=== PATIENT | female | born 1980 | race Caucasian/White ===

== ENCOUNTER 2018-12-01 13:28 | Day surgery (SDC) | payer OTHER ==
[~2018-12-01] VITALS: Ht 162.6 cm; Wt 70.0 kg
[~2018-12-01 13:28] MED LIST: OMEP40CA6 PO; SUCR1TAB56 PO
[2018-12-01 14:43] VITALS: Ht 162.6 cm; Wt 70.0 kg
[2018-12-01 15:43] VITALS: BP 100/68; PULSE 56; RESP 18
--- NOTE | 2018-12-01 16:37 | PREAC ---
Date/Time of Note Date/Time of Note DATE: 12/01/18 TIME: 16:36 Anesthesia Eval and Record Evaluation Time Pre-Procedure Interview DATE: 12/01/18 TIME: 16:36 Age 38 Sex female NPO: 8 hrs Preoperative diagnosis GERD Planned procedure EGD Past Medical History Past Medical History: None Surgery & Anesthesia Issues No known issue Meds Anticoagulation: No Beta Kaushal within 24 hr: No Reason Beta Kaushal not given: Pt. not on B-Kaushal Reported Medications Sucralfate* (Carafate*) 1 Gm Tab, 1 GM PO AC MEALS AND BEDTIME, TAB 12/01/18 Omeprazole* (Omeprazole*) 40 Mg Capsule.dr, 40 MG PO DAILY, #30 CAP 12/01/18 Meds reviewed: Yes Allergies Coded Allergies: No Known Drug Allergies (Verified Allergy, Unknown, 12/01/18) Allergies Reviewed: Yes Labs/Studies Labs Reviewed: Reviewed by anesthesiologist test: Negative Pre-procedure Exam Last vitals Vital Signs Date Temp Pulse Resp B/P (MAP) Pulse Ox O2 O2 Flow FiO2 Time Delivery Rate 12/01/18 97.5 56 18 100/68 98 Room Air 15:43 (79) Airway: Adequate mouth opening, Adequate thyromental dist Mallampati: Mallampati I Teeth: Normal Lung: Normal Heart: Normal ASA Physical Status ASA physical status: 2 Emergency: None Planned Anesthetic General/MAC: MAC Planned Pain Management Parenteral pain med Pre-operative Attestations Prior to commencing anesthesia and surgery, the patient was re-evaluated, there was verification of: *The patient's identity *The results of appropriate recent lab work and preoperative vital signs *The above evaluation not changing prior to induction *Anesthetic plan, risk benefits, alternative and complications discussed with patient/family; questions answered; patient/family understands, accepts and wishes to proceed. MARÍA PHELAN Dec 01, 2018 16:37
[2018-12-01] MEDS ORDERED: LIDOCAINE 2% (SDV) 5 ML INJ ONE (17:01)
[2018-12-01] MEDS ORDERED: PROPOFOL 20 ML ONE (17:01)
[2018-12-01] MEDS ORDERED: ONDANSETRON 4 MG INJ IV PRN (17:30)
[2018-12-01] MEDS ORDERED: FENTAnyl 50 MCG/ML VIAL IV PRN (17:30)
[2018-12-01] MEDS ORDERED: EPHEDrine 25 MG/5 ML SYG IV PRN (17:30)
--- NOTE | 2018-12-01 17:31 | PAC ---
Date/Time of Note Date/Time of Note DATE: 12/01/18 TIME: 17:31 Post-Anesthesia Notes Post-Anesthesia Note Last documented vital signs Vital Signs Date Temp Pulse Resp B/P (MAP) Pulse Ox O2 O2 Flow FiO2 Time Delivery Rate 12/01/18 97.5 56 18 100/68 98 Room Air 1731 (79) Activity: WNL Respiratory function: WNL Cardiovascular function: WNL Mental status: Baseline Pain reasonably controlled: Yes Hydration appropriate: Yes Nausea/Vomiting absent: Yes MARÍA PHELAN Dec 01, 2018 17:31
[2018-12-01 17:53] VITALS: BP 115/71; RESP 19
== END 2018-12-01 18:40 | disposition home or self-care (01) ==
LOC: GIL 13:28
PROVIDERS: ATTEND Internal Medicine Gastroenterology
DX: K29.30 Chronic superficial gastritis without bleeding (principal); K20.9 Esophagitis, unspecified
CPT/HCPCS: 43239; 84703; Z7610; 88305; 88312